=== PATIENT | male | born 1975 | race Caucasian/White ===

== ENCOUNTER 2018-10-21 06:51 | Inpatient (IN) | payer BC ==
[2018-10-21] VITALS (13 sets, daily range): BP systolic 96–127; BP diastolic 58–71; Ht 182.9 cm; Wt 85.5 kg
[~2018-10-21] VITALS: Ht 182.9 cm; Wt 85.5 kg
[2018-10-21] MEDS ORDERED: LANTUS SOL100 UNIT/1 (06:56)
[2018-10-21] MEDS ORDERED: HUMULIN R100 U/ML SC (06:56)
[2018-10-21] MEDS ORDERED: SYNTHROID25 MCG PO (06:57)
[2018-10-21 07:29] LABS: BASOPHILS 0.1 % (0-2); EOSINOPHILS 0.1 % (0-7); HEMATOCRIT 47.1 % (42.0-54.0); HEMOGLOBIN 15.7 g/dL (13.5-17.5); IMMATURE GRANULOCYTES 0.8 % (0-5); MCH 30.4 pg (26.0-34.0); MCHC 33.3 g/dL (31.0-37.0); MCV 91.3 fL (80.0-100.0); MEAN PLATELET VOLUME 10.3 fL (7.4-10.4); MONOCYTES 7.5 % (2-11); NEUTROPHILS 82.5 % (40-80); PLATELET COUNT 304 10x3/uL (130-400); RBC 5.16 10x6/uL (4.20-6.10); RDW 12.6 % (11.5-14.5); WBC 19.7 10x3/uL (4.8-10.8)
[2018-10-21 07:35] LABS: APPEARANCE CLEAR (CLEAR); BILIRUBIN NEGATIVE (NEGATIVE); COLOR STRAW (YELLOW); GLUCOSE 1000 mg/dL (NEGATIVE); KETONE LARGE mg/dL (NEGATIVE); NITRITE NEGATIVE (NEGATIVE); PROTEIN NEGATIVE (NEGATIVE); UROBILINOGEN NORMAL (NORMAL)
[2018-10-21 07:36] LABS: KETONE - SERUM LARGE mg/dL (NEGATIVE)
[2018-10-21 07:41] LABS: BACTERIA MODERATE /hpf (NONE SEEN); EPITHELIAL CELLS OCC /hpf (0-5); HYALINE CAST RARE /lpf (NONE SEEN); RED CELLS - URINE OCC /hpf (0-5); WHITE CELLS - URINE 0-5 /hpf (0-5)
[2018-10-21 07:42] LABS: AMORPHOUS SEDIMENT <1+ /lpf (NONE SEEN)
[2018-10-21 07:48] LABS: ALBUMIN 4.4 g/dL (3.4-5.0); ALKALINE PHOSPHATASE 98 U/L (46-116); ALT (SGPT) 39 U/L (10-68); BILIRUBIN - TOTAL 0.51 mg/dL (0.2-1.3); CALCIUM 9.4 mg/dL (8.5-10.1); CHLORIDE - SERUM 89 mmol/L (98-107); CREATININE - SERUM 2.5 mg/dL (0.6-1.3); MAGNESIUM - SERUM 2.6 mg/dL (1.8-2.4); PROTEIN - SERUM 9.1 g/dL (6.4-8.2); SODIUM 128 mmol/L (136-145); UREA NITROGEN 49 mg/dL (7-18); eGFR NON AFRICAN AMERICAN 30 mL/min (90-120)
[2018-10-21 07:49] LABS: CALC OSMOLALITY 307 mosm/kg (275-300)
[2018-10-21 07:51] LABS: GLUCOSE 788 mg/dL (74-106)
[2018-10-21 07:52] LABS: CARBON DIOXIDE 3.3 mmol/L (21.0-32.0); POTASSIUM - SERUM 7.3 mmol/L (3.5-5.1)
--- NOTE | 2018-10-21 07:54 | NUR ---
[facility] CALLED BY [facility] CLINICAL DATA MANAGEMENT DIRECTOR CO2- 3.3 GLUCOSE- 788 POTASSIUM- 7.3
--- NOTE | 2018-10-21 07:54 | NUR ---
REPORTED CRITICALS TO DR. WINCHESTER
--- NOTE | 2018-10-21 09:35 | NUR ---
PER DR WINCHESTER VERBAL ORDER REC'D TO START INSULIN DRIP AT 5 UNITS PER HOUR.
--- NOTE | 2018-10-21 10:06 | NUR ---
PT UP WALKING WENT TO BATHROOM WITHOUT ASSIST. STATES FEELING MUCH BETTER. IV IN LEFT AC REMOVED DUE TO NOT WORKING.
--- NOTE | 2018-10-21 10:45 | MORECARE ---
CASE MANAGEMENT DISCHARGE SUMMARY PATIENT: LAURIE BRENNAN UNIT: [id number] ADM DATE: 10/21/18 AGE: 42 : 77 SEX: M ROOM/BED: D.E07 AUTHOR: DANILO PATEL PHYSICIAN: REFERRING PHYSICIAN: RAMÓN CHE MD DATE OF SERVICE: 10/21/18 Discharge Plan Patient Name: LAURIE [facility] [facility] 1975 Planned Disposition: Anticipated Discharge Date: Discharge Date: Expected LOS: Initial Reviewer: [email or web address] Initial Review Date: 10/21/2018 Generated: 10/21/18 11:45 am Patient Name: LAURIE BRENNAN Page [id number] at 1045 All edits/amendments must be made on the electronic document DICTATION DATE: 10/21/18 1045 PLATE GLASS INSTALLER: BERNICE 10/21/18 1045 RPT#: [id number] DC DATE: STATUS: ADM IN [facility] [address] [place] [address] END OF REPORT
--- NOTE | 2018-10-21 14:45 | NUR ---
ARRIVED TO UNIT AT THIS TIME FROM ER. PT UP WALKING IN ROOM. NO ACUTE DISTRESS NOTED. 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 PT REFUSED WHEN ASKED IF HE WANTED ANY ITEMS SENT TO [facility]. NO ACUTE DISTRESS NOTED. ON INSULIN GTT. ALERT AND ORIENTED. WILL CONTINUE PLAN OF CARE.
[2018-10-21 16:11] LABS: ANION GAP 20.9 mmol/L (8-16); CALCIUM 7.5 mg/dL (8.5-10.1); CARBON DIOXIDE 15.5 mmol/L (21.0-32.0); CREATININE - SERUM 1.6 mg/dL (0.6-1.3); POTASSIUM - SERUM 4.4 mmol/L (3.5-5.1); THYROID STIMULATING HORMONE 1.53 uIU/mL (0.36-3.74)
--- NOTE | 2018-10-21 16:31 | NUR ---
LYING IN BED RESTING AT THIS TIME. PT AWAKENS EASILY WHEN SPOKEN TO. CALL LIGHT IN REACH. NO ACUTE DISTRESS NOTED. WILL CONTINUE PLAN OF CARE.
--- NOTE | 2018-10-21 18:00 | NUR ---
PER DR CHE STOP INSULIN GTT, START SLIDING SCALE ACHS LOW RESISTANCE, ORDER LANTUS AT DOSE PT TAKES AT HOME, AND START ADA DIET.
--- NOTE | 2018-10-21 19:20 | NUR ---
REPORT REC'D AND CARE ASSUMED, REC'D PT SITTING UP IN BED ON ROOM AIR, AWAKE, ALERT, ORIENTED X 4, PT DENIES PAIN, ATTEMPTING TO EAT DINNER TRAY, RIGHT HAND PIV WITH NS @ 125CC/HR, MAEE, PT HAS A FLUSHED APPEARANCE, TEMP 98.7 ORALLY, BP STABLE, BED IN LOW POSITION, SR UP X 2, CALL LIGHT IN REACH.
[2018-10-21 19:41] LABS: ANION GAP 20.2 mmol/L (8-16); CALCIUM 7.7 mg/dL (8.5-10.1); CARBON DIOXIDE 15.9 mmol/L (21.0-32.0); CREATININE - SERUM 1.5 mg/dL (0.6-1.3); MAGNESIUM - SERUM 1.9 mg/dL (1.8-2.4); POTASSIUM - SERUM 4.1 mmol/L (3.5-5.1)
--- NOTE | 2018-10-21 21:00 | NUR ---
FSBS 271 6 UNITS REGULAR INSULIN ADMINISTERED BY PATIENT TO LLQ, PT DENIES NEEDS, CALL LIGHT IN REACH.
--- NOTE | 2018-10-21 21:40 | NUR ---
MULTIMEDIA TECHNICIAN NOTIFIED OF NEED FOR LANTUS PEN.
--- NOTE | 2018-10-21 22:39 | NUR ---
LANTUS 10 UNITS GIVEN BY PT, MEAL TRAY REMOVED FROM ROOM, PT ATE APPROX 35%, URINAL EMPTIED OF 600CC CLEAR YELLOW URINE, DENIES PAIN, CALL LIGHT IN REACH, VISIBLE TO NURSES STATION.
--- NOTE | 2018-10-21 23:00 | NUR ---
REASSESSMENT COMPLETED, PT RESTING IN BED EYES CLOSED, RESP EVEN AND UNLABORED, BP STABLE, WILL CONT TO MONITOR FOR CHANGES.
[2018-10-22] VITALS (28 sets, daily range): BP systolic 98–146; BP diastolic 58–93
--- NOTE | 2018-10-22 01:30 | NUR ---
NO CHANGES IN STATUS AT THIS TIME
--- NOTE | 2018-10-22 03:00 | NUR ---
REASSESSMENT COMPLETED, NO CHANGES FROM PREVIOUS ASSESSMENT, WILL CONTINUE TO MONITOR.
--- NOTE | 2018-10-22 04:00 | NUR ---
URINAL EMPTIED OF 1000 CC URINE, PT RESTING QUIETLY WATCHING TV, STATES " I AM READY TO GO HOME", VSS, ICE WATER PROVIDED ON REQUEST, DENIES FURTHER NEEDS.
[2018-10-22 04:07] LABS: BASOPHILS 0.1 % (0-2); EOSINOPHILS 0.2 % (0-7); IMMATURE GRANULOCYTES 0.3 % (0-5); LYMPHOCYTES 20.5 % (15-50); MCH 29.3 pg (26.0-34.0); MCHC 33.5 g/dL (31.0-37.0); MEAN PLATELET VOLUME 9.6 fL (7.4-10.4); MONOCYTES 8.9 % (2-11); RDW 12.5 % (11.5-14.5)
[2018-10-22 04:12] LABS: BILIRUBIN - TOTAL 0.83 mg/dL (0.2-1.3); CALCIUM 7.8 mg/dL (8.5-10.1); CARBON DIOXIDE 12.3 mmol/L (21.0-32.0); CREATININE - SERUM 1.4 mg/dL (0.6-1.3); POTASSIUM - SERUM 4.3 mmol/L (3.5-5.1)
[2018-10-22 04:14] LABS: ALBUMIN 3.1 g/dL (3.4-5.0); PROTEIN - SERUM 6.5 g/dL (6.4-8.2)
[2018-10-22 04:15] LABS: HEMATOCRIT 36.7 % (42.0-54.0); HEMOGLOBIN 12.3 g/dL (13.5-17.5); MCV 87.4 fL (80.0-100.0); PLATELET COUNT 185 10x3/uL (130-400); WBC 9.8 10x3/uL (4.8-10.8)
--- NOTE | 2018-10-22 05:00 | NUR ---
NO CHANGES IN STATUS
--- NOTE | 2018-10-22 07:05 | NUR ---
FSBS 303, 10 UNITS REGULAR INSULIN GIVEN SQ, AM PROTONIX GIVEN , NO VISITORS IN AT THIS TIME.
--- NOTE | 2018-10-22 07:20 | NUR ---
REPORT RECIEVED, SHIFT ASSESSMENT COMPLETE, PT IS ALERT AND ORIENTED, ALL PPP, VSS, CALL LIGHT REACH
[2018-10-22 08:42] LABS: ANION GAP 29.1 mmol/L (8-16); CREATININE - SERUM 1.5 mg/dL (0.6-1.3); MAGNESIUM - SERUM 1.9 mg/dL (1.8-2.4); POTASSIUM - SERUM 4.3 mmol/L (3.5-5.1)
[2018-10-22 08:49] LABS: CARBON DIOXIDE 7.2 mmol/L (21.0-32.0)
--- NOTE | 2018-10-22 09:15 | NUR ---
NO NEEDS NOTED AT THIS TIME, WILL CON'T TO MONITOR
--- NOTE | 2018-10-22 11:00 | NUR ---
REASSESSMENT COMPLETE, NO CHANGES NOTED, WILL CON'T TO MONITOR
--- NOTE | 2018-10-22 12:45 | NUR ---
DR. BARRETT AT BEDSIDE, UPDATE GIVEN, NEW ORDERS RECIEVED,
--- NOTE | 2018-10-22 15:30 | NUR ---
INSULIN GTT INTIATED @ 5 UNITS/HR
--- NOTE | 2018-10-22 19:30 | NUR ---
REPORT RECEIVED CARE ASSUMED INITIAL SHIFT ASSESSMENT COMPLETED SEE FLOWSHEET. PT SITTING UP IN BED AAOX4 HAS BEEN VISITING WITH AND DAUGHTER VIA PHONE. INITIAL SHIFT ASSESSMENT COMPLETED SEE FLOWSHEET. PT REMAINS ON INSULIN GTT TITRATED DOCUMENTED ON GTT FLOWSHEET. BED IN LOW POSITION CALL LIGHT IN REACH PT ABLE TO MAKE NEEDS KNOWN.
--- NOTE | 2018-10-22 20:00 | NUR ---
BARISTA AT BEDSIDE FOR ORDERED LAB TESTS. PT TOLERATED WELL
[2018-10-22 20:35] LABS: ALBUMIN 3.1 g/dL (3.4-5.0); ALKALINE PHOSPHATASE 55 U/L (46-116); ALT (SGPT) 28 U/L (10-68); BILIRUBIN - TOTAL 1.23 mg/dL (0.2-1.3); CALCIUM 7.9 mg/dL (8.5-10.1); CHLORIDE - SERUM 103 mmol/L (98-107); CREATININE - SERUM 1.2 mg/dL (0.6-1.3); PROTEIN - SERUM 6.5 g/dL (6.4-8.2); SODIUM 137 mmol/L (136-145); eGFR NON AFRICAN AMERICAN 71 mL/min (90-120)
[2018-10-22 20:39] LABS: CALC OSMOLALITY 276 mosm/kg (275-300); CARBON DIOXIDE 20.2 mmol/L (21.0-32.0); GLUCOSE 143 mg/dL (74-106); POTASSIUM - SERUM 3.3 mmol/L (3.5-5.1); UREA NITROGEN 14 mg/dL (7-18)
--- NOTE | 2018-10-22 21:00 | NUR ---
PT TREATED FOR LOW K+ PER ELECTROLYTE PROTOCOL. LAB RESULTS DISCUSSED WITH PT AND PT TEACHING DONE. PT VERBALIZES UNDERSTANDING. TOILETRIES PROVIDED FOR PT PER REQUEST. PT INDEPENDENT WITH HYGENIC NEEDS
[2018-10-22 21:05] LABS: KETONE - SERUM MODERATE mg/dL (NEGATIVE)
--- NOTE | 2018-10-22 23:00 | NUR ---
SHIFT REASSESSMENT COMPLETED SEE FLOWSHEET. NO SIGNIFICANT CHANGES NOTED.
[2018-10-23] VITALS (9 sets, daily range): BP systolic 98–126; BP diastolic 55–81
--- NOTE | 2018-10-23 01:00 | NUR ---
PT SLEEPING LIGHTLY. NO C/O
--- NOTE | 2018-10-23 03:00 | NUR ---
SHIFT REASSESSMENT COMPLETED SEE FLOWSHEET
[2018-10-23 04:55] LABS: BASOPHILS 0.2 % (0-2); EOSINOPHILS 2.5 % (0-7); HEMATOCRIT 32.5 % (42.0-54.0); HEMOGLOBIN 11.4 g/dL (13.5-17.5); MCH 29.5 pg (26.0-34.0); MCHC 35.1 g/dL (31.0-37.0); MEAN PLATELET VOLUME 9.1 fL (7.4-10.4); MONOCYTES 9.8 % (2-11); NEUTROPHILS 42.5 % (40-80); PLATELET COUNT 149 10x3/uL (130-400); RBC 3.87 10x6/uL (4.20-6.10); RDW 12.3 % (11.5-14.5)
[2018-10-23 05:00] LABS: WBC 4.7 10x3/uL (4.8-10.8)
[2018-10-23 05:29] LABS: ALBUMIN 2.8 g/dL (3.4-5.0); ALKALINE PHOSPHATASE 46 U/L (46-116); ALT (SGPT) 25 U/L (10-68); BILIRUBIN - TOTAL 1.23 mg/dL (0.2-1.3); CALC OSMOLALITY 279 mosm/kg (275-300); CALCIUM 7.9 mg/dL (8.5-10.1); CARBON DIOXIDE 24.5 mmol/L (21.0-32.0); CHLORIDE - SERUM 104 mmol/L (98-107); CREATININE - SERUM 1.1 mg/dL (0.6-1.3); GLUCOSE 141 mg/dL (74-106); POTASSIUM - SERUM 3.1 mmol/L (3.5-5.1); SODIUM 140 mmol/L (136-145); UREA NITROGEN 11 mg/dL (7-18); eGFR NON AFRICAN AMERICAN 78 mL/min (90-120)
--- NOTE | 2018-10-23 06:30 | NUR ---
PT RETREATED FOR HYPOKALEMIA PER ELECTROLYTE PROTOCOL. PT TEACHING DONE ON RELATIONSHIP OF POTASSIUM AND DIABETES.
--- NOTE | 2018-10-23 07:15 | NUR ---
REPORT RECIEVED, SHIFT ASSESSMENT COMPLETE, PT IS ALERT AND ORIENTED, NO NEEDS OR WANTS NOTED, ALL PPP, VSS, CALL LIGHT IN REACH
--- NOTE | 2018-10-23 08:35 | NUR ---
PT WANTING TO GO AMA AT THIS TIME, WILL NOTIFY DR. BARERTT
--- NOTE | 2018-10-23 08:44 | NUR ---
DR. BARRETT NOTIFIED OF PT WANTING TO GO AMA
--- NOTE | 2018-10-23 10:00 | MORECARE ---
CASE MANAGEMENT DISCHARGE SUMMARY PATIENT: LAURIE BRENNAN UNIT: [id number] ADM DATE: 10/21/18 AGE: 42 : 77 SEX: M ROOM/BED: D.2304 AUTHOR: DANILO PATEL PHYSICIAN: REFERRING PHYSICIAN: RAMÓN CHE MD DATE OF SERVICE: 10/23/18 Discharge Plan Patient Name: LAURIE BR[facility]NAN [facility] [facility] 1975 Planned Disposition: Anticipated Discharge Date: Discharge Date: 10/23/2018 Expected LOS: Initial Reviewer: [email or web address] Initial Review Date: 10/21/2018 Generated: 10/23/18 11:00 am Last DP export: 10/21/18 9:45 a Patient Name: LAURIE BRENNAN Page [phone] at 1000 All edits/amendments must be made on the electronic document DICTATION DATE: 10/23/18 1000 MUSEUM EXHIBIT TECHNICIAN: DM 10/23/18 1000 RPT#: [id number] DC DATE:10/23/18 STATUS: DIS IN [facility] [address] [place] [address] END OF REPORT
== END 2018-10-23 09:02 | disposition left against medical advice (07) | DRG 638 ==
LOC: D.ER 06:51 → D.ICU 08:09 → D.EDHOLD 08:09 → EDBD 08:09 → D.ICU 13:22
PROVIDERS: Family Medicine; Internal Medicine Nephrology; ADMIT Family Medicine
DX: E11.10 Type 2 diabetes mellitus with ketoacidosis without coma (principal); E87.2 Acidosis; E87.1 Hypo-osmolality and hyponatremia; N17.9 Acute kidney failure, unspecified; Z79.4 Long term (current) use of insulin; E83.42 Hypomagnesemia; E87.5 Hyperkalemia; E03.9 Hypothyroidism, unspecified